=== PATIENT | female | born 2000 | race Two or more races ===

== ENCOUNTER 2022-07-20 13:09 | Emergency (ER) | payer MEDICAID, OTHER ==
[~2022-07-20] VITALS: Ht 165.1 cm; Wt 58.7 kg
[2022-07-20 14:26] VITALS: BP 112/70
[2022-07-20] MEDS ORDERED: ONDANSETRON ODT 4 MG TAB PO ONE (14:30)
[2022-07-20] MEDS ORDERED: SUMAtriptan SUCCINATE 25 MG TAB PO ONE (14:30)
[2022-07-20] MEDS ORDERED: SUMA50TA2 PO (15:11)
[2022-07-20] MEDS ORDERED: ONDA-144 PO (15:11)
== END 2022-07-20 15:11 | disposition home or self-care (01) ==
LOC: ER 13:09
DX: G43.909 Migraine, unspecified, not intractable, without status migrainosus (principal); F41.9 Anxiety disorder, unspecified
CPT/HCPCS: Q0162

== ENCOUNTER 2022-08-26 19:49 | Emergency (ER) | payer MEDICAID ==
[~2022-08-26] VITALS: Ht 165.1 cm; Wt 56.8 kg
[~2022-08-26 19:49] MED LIST: ONDA-144 PO; SUMA50TA2 PO
[2022-08-26] MEDS ORDERED: HYDROcodone-ACET 10/325MG TAB PO ONE (20:30)
[2022-08-26 23:51] VITALS: BP 114/69
== END 2022-08-26 23:55 | disposition home or self-care (01) ==
LOC: ER 19:49
DX: G43.909 Migraine, unspecified, not intractable, without status migrainosus (principal); F41.9 Anxiety disorder, unspecified
CPT/HCPCS: 70450